=== PATIENT | female | born 1980 | race American Indian/Alaskan Native ===

== ENCOUNTER 2016-05-17 08:33 | Emergency (ER) | payer MEDICAID ==
[2016-05-17 10:33] LABS: Basophils % (Auto) 0.7 % (0.0-1.8); Eosinophils % (Auto) 2.4 % (0.0-4.3); Hematocrit 35.6 % (30.3-42.9); Hemoglobin 11.9 gm/dl (10.1-14.3); Mean Corpuscular HGB Conc 34 % (30-34); Mean Corpuscular Hemoglobin 29 pg (28-32); Mean Corpuscular Volume 86 fl (79-97); Platelet Count 302 K/mm3 (140-440); Red Blood Count 4.15 M/mm3 (3.65-5.03); Red Cell Distribution Width 13.5 % (13.2-15.2)
[2016-05-17 10:35] LABS: Anion Gap 15 mmol/L; BUN/Creatinine Ratio 11.25; Blood Urea Nitrogen 9 mg/dL (7-17); Calcium 9.2 mg/dL (8.4-10.2); Carbon Dioxide 28 mmol/L (22-30); Chloride 97.5 mmol/L (98-107); Glucose 102 mg/dL (65-100); Potassium 3.8 mmol/L (3.6-5.0); Sodium 137 mmol/L (137-145)
--- NOTE | 2016-05-17 16:31 | Emergency Department Report ---
- General Chief Complaint: Upper Respiratory Infection Stated Complaint: COUGH/ADIS Time Seen by Provider: 05/17/16 16:27 Source: patient Mode of arrival: Ambulatory Limitations: No Limitations - History of Present Illness Initial Comments: 35F PMH HTN p/w c/o x2 weeks of URI symptoms, cough, prdocutive with yellow sputum, mild sore throat, body aches. Pt states she went to urgent care and was started on Azithromycin but lost here last 2 days worth of doses. Pt is AAox3, NAD, no audible wheezing or stridor during exam. Speaking in full sentences. c/ o sensation of congestion. Denies chest pain or palpatations, no blurry vision ro SOB. Pt states she is intermittently complaint with her HTN meds. Also states she accidentally fell out of a chair x1 week ago and fell on her rear. MD Complaint: fever, cough, sore throat, rhinorrhea, nasal congestion Onset/Timin -: week(s) Severity: moderate Quality: aching Consistency: constant Improves With: nothing - Related Data Home Medications Medication Instructions Recorded Confirmed Last Taken Lisinopril/Hydrochlorothiazide 1 tab PO QDAY 10/06/15 01/16/16 01/16/16 11:00 [Zestoretic 20-12.5 mg] Nebivolol HCl [Bystolic] 5 mg PO QDAY 10/06/15 01/16/16 10/11/15 Previous Rx's Medication Instructions Recorded Last Taken Type ALBUTEROL Inhaler [ProAir HFA 2 puff IH QID PRN #1 inhalation 05/17/16 Unknown Rx Inhaler] Azithromycin [Zithromax TAB] 250 mg PO QDAY #2 tablet 05/17/16 Unknown Rx Naproxen [Naprosyn TAB] 500 mg PO BID PRN #25 tablet 05/17/16 Unknown Rx guaiFENesin DM [Robitussin Dm] 10 ml PO Q6HR PRN #1 bottle 05/17/16 Unknown Rx Allergies Allergy/AdvReac Type Severity Reaction Status Date / Time No Known Allergies Allergy Verified 05/17/16 08:43 ED Review of Systems ROS: Stated complaint: COUGH/ADIS Other details as noted in HPI ED Past Medical Hx - Past Medical History Hx Hypertension: Yes (DR. TATA MONTESINOS- PCP) Hx Diabetes: Yes (BORDERLINE) Hx Renal Disease: No Hx Seizures: No Hx Asthma: No Hx HIV: No - Surgical History Additional Surgical History: . LYPOMA REMOVED FROM BACK - Social History Smoking Status: Never Smoker Substance Use Type: None - Medications Home Medications: Home Medications Medication Instructions Recorded Confirmed Last Taken Type Lisinopril/Hydrochlorothiazide 1 tab PO QDAY 10/06/15 01/16/16 01/16/16 11:00 History [Zestoretic 20-12.5 mg] Nebivolol HCl [Bystolic] 5 mg PO QDAY 10/06/15 01/16/16 10/11/15 History ALBUTEROL Inhaler [ProAir HFA 2 puff IH QID PRN #1 inhalation 05/17/16 Unknown Rx Inhaler] Azithromycin [Zithromax TAB] 250 mg PO QDAY #2 tablet 05/17/16 Unknown Rx Naproxen [Naprosyn TAB] 500 mg PO BID PRN #25 tablet 05/17/16 Unknown Rx guaiFENesin DM [Robitussin Dm] 10 ml PO Q6HR PRN #1 bottle 05/17/16 Unknown Rx ED Physical Exam - General Limitations: No Limitations General appearance: alert, in no apparent distress - Head Head exam: Present: atraumatic, normocephalic - Eye Eye exam: Present: normal appearance, PERRL, EOMI - ENT ENT exam: Present: mucous membranes moist - Neck Neck exam: Present: normal inspection, full ROM - Respiratory Respiratory exam: Present: normal lung sounds bilaterally. Absent: respiratory distress - Cardiovascular Cardiovascular Exam: Present: regular rate, normal rhythm. Absent: systolic murmur, diastolic murmur, rubs, gallop - GI/Abdominal GI/Abdominal exam: Present: soft, normal bowel sounds - Extremities Exam Extremities exam: Present: normal inspection - Back Exam Back exam: Present: normal inspection - Neurological Exam Neurological exam: Present: alert, oriented X3, CN II-XII intact, normal gait - Psychiatric Psychiatric exam: Present: normal mood, anxious - Skin Skin exam: Present: warm, dry, intact, normal color. Absent: rash ED Course Vital Signs 05/17/16 05/17/16 05/17/16 08:41 14:02 16:52 Temperature 98.1 F 97.7 F Pulse Rate 93 H 87 86 Respiratory 18 16 18 Rate Blood Pressure 153/110 160/106 Blood Pressure 167/118 [Right] O2 Sat by Pulse 95 99 97 Oximetry 05/17/16 05/17/16 05/17/16 17:00 18:17 18:31 Temperature Pulse Rate 86 90 90 Respiratory 18 Rate Blood Pressure 167/118 163/112 Blood Pressure 163/112 [Right] O2 Sat by Pulse 100 Oximetry 05/17/16 05/17/16 05/17/16 20:07 20:42 20:54 Temperature Pulse Rate 86 Respiratory Rate Blood Pressure 178/126 157/97 Blood Pressure [Right] O2 Sat by Pulse 100 100 Oximetry 05/17/16 05/17/16 05/17/16 21:00 21:10 21:20 Temperature Pulse Rate Respiratory Rate Blood Pressure 157/97 157/97 157/97 Blood Pressure [Right] O2 Sat by Pulse 98 99 97 Oximetry ED Medical Decision Making - Lab Data Result diagrams: 05/17/16 10:05 05/17/16 10:05 - Medical Decision Making A/P: URI, acute bronchitis, musculoskeletal pain, HTN 1-patient states that she lost her last 2 doses of azithromycin will give her 250 mg for 2 days. Albuterol inhaler when necessary. Mucinex when necessary. Naproxen when necessary 2-patient has no signs of severe trauma to lumbar spine or sacrum. Is fully ambulatory without assistance, fell over a week ago and the pain is minimal currently. 3-I will refer patient's primary care she does not currently have primary care 4- PERC Rule negative, Wells Score for PE 0.0 points Low risk group: 1.3% chance of PE in an ED population. Another study assigned scores 4 as PE Unlikely and had a 3% incidence of PE. pt has no cardiac risk factors. HEART Score 1 points Low Score (0-3 points) Risk of MACE of 0.9-1.7%. 5- patient's blood pressure was mildly elevated during the ED course, ~ 170-110 range. pt states she has not been taking her BP meds consistently. Patient given PO clonidine, PO low-dose amlodipine and 1 dose of IV 10mg hydralazine, blood pressure responded slowly. Patient was asymptomatic, no chest pain no shortness of breath no nausea no vomiting no palpitations no blurry vision. Patient stated that she felt better, BP lower. I advised patient to follow up with him next week for primary care follow-up and to have her blood pressure checked again. I advised patient to take her blood pressure medicine consistently. Critical care attestation.: If time is entered above; I have spent that time in minutes in the direct care of this critically ill patient, excluding procedure time. ED Disposition Clinical Impression: Acute bronchitis Qualifiers: Bronchitis organism: unspecified organism Qualified Code(s): J20.9 - Acute bronchitis, unspecified Disposition: DISCHARGED TO HOME OR SELFCARE Is pt being admited?: No Does the pt Need Aspirin: No Condition: Stable Instructions: Acute Bronchitis (ED) Prescriptions: ALBUTEROL Inhaler [ProAir HFA Inhaler] 2 puff IH QID PRN #1 inhalation PRN Reason: Shortness Of Breath Azithromycin [Zithromax TAB] 250 mg PO QDAY #2 tablet guaiFENesin DM [Robitussin Dm] 10 ml PO Q6HR PRN #1 bottle PRN Reason: Cough Naproxen [Naprosyn TAB] 500 mg PO BID PRN #25 tablet PRN Reason: Pain Referrals: [facility] [Outside] - 3-5 Days [facility] [Provider Group] - 3-5 Days JACKSON TORRES MD [Staff Physician] - 3-5 Days Forms: Work/School Release Form(ED) Time of Disposition: 16:35
[2016-05-17] MEDS ORDERED: CATAPRES PO ONE (16:53)
[2016-05-17] MEDS ORDERED: NORVASC PO ONE (18:16)
[2016-05-17] MEDS ORDERED: APRESOLINE IV ONE (19:51)
[2016-05-17 21:40] LABS: Bacteria,Urine 1+ /HPF (Negative); Bilirubin,Urine NEG (Negative); Blood,Urine MOD (Negative); Ketones,Urine NEG (Negative); Leukocyte Esterase,Urine NEG (Negative); Nitrite,Urine NEG (Negative); Protein,Urine <15 mg/dL mg/dL (Negative); Urobilinogen,Urine < 2.0 mg/dL (<2.0); WBC,Urine < 1.0 /HPF (0.0-6.0)
[2016-05-17 21:41] LABS: RBC,Urine < 1.0 /HPF (0.0-6.0)
[2016-05-17 23:07] VITALS: BP 136/90
== END 2016-05-17 22:00 | disposition home or self-care (01) ==
LOC: ED 08:33
DX: J20.9 Acute bronchitis, unspecified (principal); I10 Essential (primary) hypertension
CPT/HCPCS: 36415; 80048; 81001; 81025; 84484; 85025; 93005; 93010; 96374; 99284; J0360

== ENCOUNTER 2016-09-17 14:34 | Emergency (ER) | payer MEDICAID ==
--- NOTE | 2016-09-17 15:04 | Emergency Department Report ---
ED ENT HPI - General Chief complaint: Dental/Oral Stated complaint: TOOTHACHE Time Seen by Provider: 09/17/16 14:58 Source: patient Mode of arrival: Ambulatory Limitations: No Limitations - History of Present Illness Initial comments: PT c/o R upper toothache since yesterday. PT states she took 1 gm of Tylenol for this, Mortin 800mg, and two pills of Amoxil from an old RX. PT states no improvement in pain. PT has not seen a Dentist recently or had any recent dental work. MD complaint: tooth pain - Related Data Home Medications Medication Instructions Recorded Confirmed Last Taken Lisinopril/Hydrochlorothiazide 1 tab PO QDAY 10/06/15 01/16/16 01/16/16 11:00 [Zestoretic 20-12.5 mg] Nebivolol HCl [Bystolic] 5 mg PO QDAY 10/06/15 01/16/16 10/11/15 Previous Rx's Medication Instructions Recorded Last Taken Type ALBUTEROL Inhaler [ProAir HFA 2 puff IH QID PRN #1 inhalation 05/17/16 Unknown Rx Inhaler] Azithromycin [Zithromax TAB] 250 mg PO QDAY #2 tablet 05/17/16 Unknown Rx Naproxen [Naprosyn TAB] 500 mg PO BID PRN #25 tablet 05/17/16 Unknown Rx guaiFENesin DM [Robitussin Dm] 10 ml PO Q6HR PRN #1 bottle 05/17/16 Unknown Rx Allergies Allergy/AdvReac Type Severity Reaction Status Date / Time No Known Allergies Allergy Verified 05/17/16 08:43 ED Dental HPI - General Stated complaint: TOOTHACHE Time Seen by Provider: 09/17/16 14:58 - Related Data Home Medications Medication Instructions Recorded Confirmed Last Taken Lisinopril/Hydrochlorothiazide 1 tab PO QDAY 10/06/15 01/16/16 01/16/16 11:00 [Zestoretic 20-12.5 mg] Nebivolol HCl [Bystolic] 5 mg PO QDAY 10/06/15 01/16/16 10/11/15 Previous Rx's Medication Instructions Recorded Last Taken Type ALBUTEROL Inhaler [ProAir HFA 2 puff IH QID PRN #1 inhalation 05/17/16 Unknown Rx Inhaler] Azithromycin [Zithromax TAB] 250 mg PO QDAY #2 tablet 05/17/16 Unknown Rx Naproxen [Naprosyn TAB] 500 mg PO BID PRN #25 tablet 05/17/16 Unknown Rx guaiFENesin DM [Robitussin Dm] 10 ml PO Q6HR PRN #1 bottle 05/17/16 Unknown Rx Allergies Allergy/AdvReac Type Severity Reaction Status Date / Time No Known Allergies Allergy Verified 05/17/16 08:43 ED Review of Systems ROS: Stated complaint: TOOTHACHE Other details as noted in HPI ED Past Medical Hx - Past Medical History Previous Medical History?: Yes Hx Hypertension: Yes (DR. TATA MONTESINOS- PCP) Hx Diabetes: Yes (BORDERLINE) Hx Renal Disease: No Hx Seizures: No Hx Asthma: No Hx HIV: No - Surgical History Past Surgical History?: Yes Additional Surgical History: . LYPOMA REMOVED FROM BACK - Social History Smoking Status: Never Smoker Substance Use Type: None - Medications Home Medications: Home Medications Medication Instructions Recorded Confirmed Last Taken Type Lisinopril/Hydrochlorothiazide 1 tab PO QDAY 10/06/15 01/16/16 01/16/16 11:00 History [Zestoretic 20-12.5 mg] Nebivolol HCl [Bystolic] 5 mg PO QDAY 10/06/15 01/16/16 10/11/15 History ALBUTEROL Inhaler [ProAir HFA 2 puff IH QID PRN #1 inhalation 05/17/16 Unknown Rx Inhaler] Azithromycin [Zithromax TAB] 250 mg PO QDAY #2 tablet 05/17/16 Unknown Rx Naproxen [Naprosyn TAB] 500 mg PO BID PRN #25 tablet 05/17/16 Unknown Rx guaiFENesin DM [Robitussin Dm] 10 ml PO Q6HR PRN #1 bottle 05/17/16 Unknown Rx Critical care attestation.: If time is entered above; I have spent that time in minutes in the direct care of this critically ill patient, excluding procedure time. ED Disposition Condition: Stable
--- NOTE | 2016-09-17 15:06 | Emergency Department Report ---
Chief Complaint: Dental/Oral Stated Complaint: TOOTHACHE Time Seen by Provider: 09/17/16 14:58 - HPI History of Present Illness: PT c/o toothache since last night. PT states she does not regularly take her bp medication - ROS Review of Systems: + toothache - cp - sob - Exam Vital Signs: Vital Signs 09/17/16 14:58 Temperature 97.7 F Pulse Rate 85 Respiratory 18 Rate Blood Pressure 196/146 O2 Sat by Pulse 97 Oximetry Physical Exam: PT looks well, non toxic. multiple decayed teeth MSE screening note: Focused history and physical exam performed. Due to findings the following was ordered: labs ED Disposition for MSE Condition: Stable
[2016-09-17 15:42] LABS: Anion Gap 19 mmol/L; Blood Urea Nitrogen 7 mg/dL (7-17); Calcium 9.4 mg/dL (8.4-10.2); Carbon Dioxide 25 mmol/L (22-30); Chloride 99.9 mmol/L (98-107); Glucose 97 mg/dL (65-100); Potassium 3.3 mmol/L (3.6-5.0); Sodium 141 mmol/L (137-145)
[2016-09-17 15:44] LABS: Hematocrit 38.2 % (30.3-42.9); Mean Corpuscular HGB Conc 34 % (30-34); Mean Corpuscular Hemoglobin 29 pg (28-32); Mean Corpuscular Volume 86 fl (79-97); Platelet Count 303 K/mm3 (140-440); Red Blood Count 4.46 M/mm3 (3.65-5.03); Red Cell Distribution Width 13.4 % (13.2-15.2)
[2016-09-17] MEDS ORDERED: ZESTRIL PO ONE (17:34)
[2016-09-17 17:47] LABS: Basophils % (Manual) 0 % (0.0-1.8); Blastocytes % (Manual) 0 %
[2016-09-17 17:48] LABS: Diff Status Complete; Platelet Estimate Consistent w Auto; RBC Morphology Normal
[2016-09-17] MEDS ORDERED: CATAPRES PO ONE (19:34)
[2016-09-17] MEDS ORDERED: TYLENOL PO ONE (20:07)
[2016-09-17] MEDS ORDERED: TRIMOX PO ONE (20:07)
[2016-09-17] MEDS ORDERED: TYLENOL ONE (20:07)
[2016-09-17] MEDS ORDERED: K-DUR PO ONE (20:08)
--- NOTE | 2016-09-17 20:09 | Emergency Department Report ---
HPI - General Chief Complaint: Dental/Oral Time Seen by Provider: 09/17/16 14:58 - HPI HPI: Patient here reporting toothache that started last night. She says she took Tylenol last night and Motrin this morning and but the pain is still there. Pain is located to the top right back tooth. Patient blood pressure in triage is 196/146 subsequent blood pressure remains elevated with a high-speed tools 7/ 133 and patient complained of frontal headache. Since that she takes 2 blood pressure medications include lisinopril and water pill for her blood pressure and when she has toothache her blood pressure always goes up. Denies any fever or chills. Denies any trauma to face. Denies any facial swelling. Pain is 9 out of 10 and aching. Nose and blurred vision, dizziness nausea or vomiting. Denies any chest pain or shortness of breath. ED Past Medical Hx - Past Medical History Previous Medical History?: Yes Hx Hypertension: Yes (DR. TATA MONTESINOS- PCP) Hx Diabetes: Yes (BORDERLINE) Hx Renal Disease: No Hx Seizures: No Hx Asthma: No Hx HIV: No - Surgical History Past Surgical History?: Yes Additional Surgical History: . LYPOMA REMOVED FROM BACK - Family History Family history: hypertension - Social History Smoking Status: Never Smoker Substance Use Type: None - Medications Home Medications: Home Medications Medication Instructions Recorded Confirmed Last Taken Type Lisinopril/Hydrochlorothiazide 1 tab PO QDAY 10/06/15 01/16/16 01/16/16 11:00 History [Zestoretic 20-12.5 mg] Nebivolol HCl [Bystolic] 5 mg PO QDAY 10/06/15 01/16/16 10/11/15 History ALBUTEROL Inhaler [ProAir HFA 2 puff IH QID PRN #1 inhalation 05/17/16 Unknown Rx Inhaler] Azithromycin [Zithromax TAB] 250 mg PO QDAY #2 tablet 05/17/16 Unknown Rx Naproxen [Naprosyn TAB] 500 mg PO BID PRN #25 tablet 05/17/16 Unknown Rx guaiFENesin DM [Robitussin Dm] 10 ml PO Q6HR PRN #1 bottle 05/17/16 Unknown Rx Acetaminophen/Codeine [Tylenol 1 tab PO Q6H PRN #12 tab 09/17/16 Unknown Rx /Codeine # 3 tab] Amoxicillin [Amoxicillin TAB] 875 mg PO BID #20 tablet 09/17/16 Unknown Rx ED Review of Systems ROS: Stated complaint: TOOTHACHE Other details as noted in HPI Comment: All other systems reviewed and negative Constitutional: denies: chills, fever Eyes: denies: eye pain, vision change ENT: dental pain. denies: ear pain, throat pain, hearing loss, epistaxis, congestion Respiratory: no symptoms reported Cardiovascular: denies: chest pain, palpitations, dyspnea on exertion, edema, syncope, paroxysmal nocturnal dyspnea Gastrointestinal: denies: abdominal pain, nausea, vomiting, diarrhea Musculoskeletal: denies: back pain, joint swelling, arthralgia, myalgia Skin: denies: rash Neurological: headache. denies: weakness, numbness, paresthesias, confusion, abnormal gait, vertigo Physical Exam - Physical Exam Vital Signs: Vital Signs 09/17/16 09/17/16 09/17/16 14:58 17:33 17:49 Temperature 97.7 F Pulse Rate 85 85 Respiratory 18 Rate Blood Pressure 196/146 196/146 Blood Pressure [Right] O2 Sat by Pulse 97 98 Oximetry 09/17/16 18:51 Temperature Pulse Rate 68 Respiratory 18 Rate Blood Pressure Blood Pressure 180/126 [Right] O2 Sat by Pulse 100 Oximetry Vital Signs 09/17/16 09/17/16 09/17/16 14:58 17:33 17:49 Temperature 97.7 F Pulse Rate 85 85 Respiratory 18 Rate Blood Pressure 196/146 196/146 Blood Pressure [Right] O2 Sat by Pulse 97 98 Oximetry 09/17/16 09/17/16 09/17/16 18:51 20:14 21:26 Temperature 98.9 F Pulse Rate 68 68 87 Respiratory 18 18 18 Rate Blood Pressure Blood Pressure 180/126 156/105 [Right] O2 Sat by Pulse 100 100 Oximetry Vital Signs 09/17/16 09/17/16 09/17/16 14:58 17:33 17:49 Temperature 97.7 F Pulse Rate 85 85 Respiratory 18 Rate Blood Pressure 196/146 196/146 Blood Pressure [Right] O2 Sat by Pulse 97 98 Oximetry 09/17/16 09/17/16 09/17/16 18:51 20:14 21:26 Temperature 98.9 F Pulse Rate 68 68 87 Respiratory 18 18 18 Rate Blood Pressure Blood Pressure 180/126 156/105 [Right] O2 Sat by Pulse 100 100 Oximetry 09/17/16 21:54 Temperature Pulse Rate Respiratory Rate Blood Pressure Blood Pressure 152/98 [Right] O2 Sat by Pulse Oximetry General: This is a 35-year-old female well-nourished well-developed in no acute distress. Physical Exam: Head: Normocephalic, atraumatic. No abrasions, laceration or contusion Neck: Supple, no adenopathy. Full range of motion. No C-spine tenderness. No muscular tenderness Mouth: Moist, no pharyngeal exudate or erythema. Uvula is midline and oral airways patent. Positive dental caries .dental tenderness around tooth #3 and 2 without any cellulitis or induration . Tongue is normal. No trismus. No peritonsillar abscess. Eyes: Bilateral conjunctivae and sclerae are without erythema or injection. Normal accommodation bilaterally. Pupils equal and reactive to light. Ear: Bilateral TMs pearly mcintosh, bilateral EAC without any redness swelling or drainage. Bilateral tract is nontender to palpate. Abdomen: Nontender the palpation in all quadrants, no guarding or rebound tenderness. No CVA tenderness and normal bowel sounds in all quadrants. Extremity: No clubbing, cyanosis or edema. +2 pulses in all extremities. No neurovascular compromise. Capillary refill is less than 3 seconds. Good color , sensation, movement and temperature in all extremities. Skin: Joshua and intact, no rash or lesions. PSYCH: Normal mood and behavior. Neurological: GCS of 15, speech is clear and fluid, alert and oriented 3. Normal gait, negative Romberg and negative pronator drift. No motor or sensory deficit. Back: No vertebral tenderness, no paraspinal tenderness, no saddle anesthesia,. Patient able to relate without any difficulties. ED Course Vital Signs 09/17/16 09/17/16 09/17/16 14:58 17:33 17:49 Temperature 97.7 F Pulse Rate 85 85 Respiratory 18 Rate Blood Pressure 196/146 196/146 Blood Pressure [Right] O2 Sat by Pulse 97 98 Oximetry 09/17/16 18:51 Temperature Pulse Rate 68 Respiratory 18 Rate Blood Pressure Blood Pressure 180/126 [Right] O2 Sat by Pulse 100 Oximetry Vital Signs 09/17/16 09/17/16 09/17/16 14:58 17:33 17:49 Temperature 97.7 F Pulse Rate 85 85 Respiratory 18 Rate Blood Pressure 196/146 196/146 Blood Pressure [Right] O2 Sat by Pulse 97 98 Oximetry 09/17/16 09/17/16 09/17/16 18:51 20:14 21:26 Temperature 98.9 F Pulse Rate 68 68 87 Respiratory 18 18 18 Rate Blood Pressure Blood Pressure 180/126 156/105 [Right] O2 Sat by Pulse 100 100 Oximetry 09/17/16 21:54 Temperature Pulse Rate Respiratory Rate Blood Pressure Blood Pressure 152/98 [Right] O2 Sat by Pulse Oximetry - Reevaluation(s) Reevaluation #1: 09/17/16 22:00 Patient received Tylenol 975 mg in emergency room to manage toothache which she said helps. He gave her amoxicillin 1 g by mouth for dental caries and toothache. CT scan of the head negative for any acute findings. Patient potassium was at 3.3 so she was given K Dur 40 mEq by mouth, blood pressure elevated she was given lisinopril 40 mg 1 dose which is her usual dose at home but it did not help so she was given clonidine 0.25 mg which brought her blood pressure down and relieved her headache. 09/17/16 22:01 ED Medical Decision Making - Lab Data Result diagrams: 09/17/16 15:08 09/17/16 15:08 Lab Results 09/17/16 09/17/16 09/17/16 Range/Units 15:08 15:08 15:08 WBC 5.0 (4.5-11.0) K/mm3 RBC 4.46 (3.65-5.03) M/mm3 Hgb 13.0 (10.1-14.3) gm/dl Hct 38.2 (30.3-42.9) % MCV 86 (79-97) fl MCH 29 (28-32) pg MCHC 34 (30-34) % RDW 13.4 (13.2-15.2) % Plt Count 303 (140-440) K/mm3 Add Manual Diff Complete Total Counted 100 Seg Neuts % (Manual) 36.0 L (40.0-70.0) % Band Neutrophils % 0 % Lymphocytes % (Manual) 57.0 H (13.4-35.0) % Reactive Lymphs % (Man) 3.0 % Monocytes % (Manual) 3.0 (0.0-7.3) % Eosinophils % (Manual) 1.0 (0.0-4.3) % Basophils % (Manual) 0 (0.0-1.8) % Metamyelocytes % 0 % Myelocytes % 0 % Promyelocytes % 0 % Blast Cells % 0 % Nucleated RBC % Not Reportable Seg Neutrophils # Man 1.8 (1.8-7.7) K/mm3 Band Neutrophils # 0.0 K/mm3 Lymphocytes # (Manual) 2.9 (1.2-5.4) K/mm3 Abs React Lymphs (Man) 0.2 K/mm3 Monocytes # (Manual) 0.2 (0.0-0.8) K/mm3 Eosinophils # (Manual) 0.1 (0.0-0.4) K/mm3 Basophils # (Manual) 0.0 (0.0-0.1) K/mm3 Metamyelocytes # 0.0 K/mm3 Myelocytes # 0.0 K/mm3 Promyelocytes # 0.0 K/mm3 Blast Cells # 0.0 K/mm3 WBC Morphology Not Reportable Hypersegmented Neuts Not Reportable Hyposegmented Neuts Not Reportable Hypogranular Neuts Not Reportable Smudge Cells Not Reportable Toxic Granulation Not Reportable Toxic Vacuolation Not Reportable Dohle Bodies Not Reportable Pelger-Huet Anomaly Not Reportable [place] Rods Not Reportable Platelet Estimate Consistent w auto Clumped Platelets Not Reportable Plt Clumps, EDTA Not Reportable Large Platelets Not Reportable Giant Platelets Not Reportable Platelet Satelliting Not Reportable Plt Morphology Comment Not Reportable RBC Morphology Normal Dimorphic RBCs Not Reportable Polychromasia Not Reportable Hypochromasia Not Reportable Poikilocytosis Not Reportable Anisocytosis Not Reportable Microcytosis Not Reportable Macrocytosis Not Reportable Spherocytes Not Reportable Pappenheimer Bodies Not Reportable Sickle Cells Not Reportable Target Cells Not Reportable Tear Drop Cells Not Reportable Ovalocytes Not Reportable Helmet Cells Not Reportable [place] Bodies Not Reportable [place] Rings Not Reportable [place] Cells Not Reportable Bite Cells Not Reportable Crenated Cell Not Reportable Elliptocytes Not Reportable Acanthocytes (Spur) Not Reportable Rouleaux Not Reportable Hemoglobin C Crystals Not Reportable Schistocytes Not Reportable Malaria parasites Not Reportable Henry Bodies Not Reportable Hem Pathologist Commnt No Sodium 141 (137-145) mmol/L Potassium 3.3 L (3.6-5.0) mmol/L Chloride 99.9 (98-107) mmol/L Carbon Dioxide 25 (22-30) mmol/L Anion Gap 19 mmol/L BUN 7 (7-17) mg/dL Creatinine 0.7 (0.7-1.2) mg/dL Estimated GFR > 60 ml/min BUN/Creatinine Ratio 10.00 % Glucose 97 (65-100) mg/dL Calcium 9.4 (8.4-10.2) mg/dL HCG, Qual Negative (Negative) - Radiology Data Radiology results: report reviewed CT scan of the head reveals no acute findings. - Medical Decision Making ED course: here complaining of toothache with headache. Her blood pressures been elevated and she takes lisinopril and hydrochlorothiazide at home which she says she did not take today.Patient received Tylenol 975 mg in emergency room to manage toothache which she said helps. He gave her amoxicillin 1 g by mouth for dental caries and toothache. CT scan of the head negative for any acute findings. Patient potassium was at 3.3 so she was given K Dur 40 mEq by mouth, blood pressure elevated she was given lisinopril 40 mg 1 dose which is her usual dose at home but it did not help so she was given clonidine 0.2 mg which brought her blood pressure down and relieved her headache. Patient says she is feeling better and I encouraged her to follow-up with Dr. Tata Montesinos in 2 days and to keep a long of her blood pressure. Patient discharged home with prescription for amoxicillin, Tylenol No. 3 and to follow up at [facility] dental clinic. Critical care attestation.: If time is entered above; I have spent that time in minutes in the direct care of this critically ill patient, excluding procedure time. ED Disposition Clinical Impression: Toothache, Dental caries, Elevated blood pressure reading with diagnosis of hypertension Acute headache Qualifiers: Headache type: unspecified Intractability: not intractable Qualified Code(s): R51 - Headache Disposition: DC-01 TO HOME OR SELFCARE Is pt being admited?: No Does the pt Need Aspirin: No Condition: Stable Instructions: Hypertension (ED), Acute Headache (ED), Toothache (ED), Dental Caries (ED), How to Take a Blood Pressure (ED) Additional Instructions: Please increase her fluid intake and avoid adding salt to food You can eat potassium twice a day and this will keep your potassium in normal range. Follow-up with your primary care physician to have potassium rechecked as it was low and You did receive potassium in the emergency room Water pill can cause you to lose potassium so he will need to eat bananas or cantaloupe to keep potassium level normal These follow-up with dental clinic that you're referred to a discharge paper work. Take antibiotic as prescribed These do not drive or operate heavy machinery while taking in Tylenol 3 of this medication causes drowsiness Prescriptions: Acetaminophen/Codeine [Tylenol /Codeine # 3 tab] 1 tab PO Q6H PRN #12 tab PRN Reason: Toothache Amoxicillin [Amoxicillin TAB] 875 mg PO BID #20 tablet Referrals: [facility] [Outside] - 3-5 Days TATA MONTESINOS MD [Staff Physician] - 2-3 Days Forms: Work/School Release Form(ED)
--- NOTE | 2016-09-17 21:27 | Cat Scan Report ---
FINAL REPORT EXAM: CT HEAD/BRAIN WO CON HISTORY: headache with HBP TECHNIQUE: CT imaging acquired through the head without intravenous contrast. Transaxial reformations are provided. PRIORS: None. FINDINGS: The ventricles, cisterns and sulci are normal. No intraparenchymal or extra-axial mass, hemorrhage, or mass effect. Padron and white-matter differentiation is normal. Normal spherical shape of the globes. Paranasal sinuses and mastoid air cells are clear. No skull or facial fracture visualized. IMPRESSION: No acute intracranial abnormality.
[2016-09-17 21:56] VITALS: BP 152/98
== END 2016-09-17 22:15 | disposition home or self-care (01) ==
LOC: ED 14:34
DX: K02.9 Dental caries, unspecified (principal); I10 Essential (primary) hypertension
CPT/HCPCS: 36415; 70450; 80048; 84703; 85007; 85025; 99284